=== PATIENT | female | born 1950 | race Caucasian/White ===

== ENCOUNTER → 2020-07-28 | Outpatient (CLI) | payer MEDICARE, OTHER ==
--- NOTE | 2020-07-28 11:06 | MR ---
EXAMINATION TYPE: MR brain wo/w con DATE OF EXAM: 07/28/2020 COMPARISON: None HISTORY: Dizziness and headaches. Hx of Breast CA TECHNIQUE: Multiplanar, multisequence images of the brain and brainstem is performed without and with IV contras t, utilizing 7.5 mL intravenous Gadavist . FINDINGS: Diffusion weighted images demonstrate no evidence of a recent infarct or other diffusion ab normality. There is no extra-axial fluid collection. Scattered periventricular hyperintensities are present on inversion recovery T2-weighted sequences, approximately 5 lesions. The ventricular system and cisternal spaces are normal in size and appearance. The brain volume is age appropriate. Midline structures demonstrate normal morphology. The craniocervical junction appears within normal limits. Post contrast images demonstrate no abnormal enhancement. The dural venous sinuses appear pa tent. The visualized sinuses are showing some mucoperiosteal thickening in ethmoid air cells and maxi llary sinus and the globes are intact. IMPRESSION: Nonspecific white matter demyelination could be related to chronic small vessel ischemia
== END | disposition home or self-care (01) ==
LOC: RADMRIMAIN 09:07
PROVIDERS: ATTEND Internal Medicine Hematology & Oncology
DX: G37.8 Other specified demyelinating diseases of central nervous system (principal); R51.9 Headache, unspecified; C50.511 Malignant neoplasm of lower-outer quadrant of right female breast
CPT/HCPCS: 70553; A9585

== ENCOUNTER → 2020-11-01 | Outpatient (CLI) | payer MEDICARE, OTHER ==
--- NOTE | 2020-11-01 14:43 | NM ---
EXAMINATION TYPE: NM bone scan whole body DATE OF EXAM: 11/01/2020 COMPARISON: NONE HISTORY: Breast cancer Delayed whole-body scanning was performed following the injection of 24.8 mCi Tc 99m MDP. Images wer e acquired 3 hours post injection. FINDINGS: Mild uptake is along the posterior left upper cervical spine may be degenerative in nature. Mild upta ke is present along the costovertebral junction T5 on the right, T7 on the left possibly T11 on the r ight. There is a focus of radiotracer accumulation near the anterior sternal clavicular junction on the rig ht, likely degenerative in nature. Focal radiotracer accumulation is within the left midfoot more likely is posttraumatic or degenerativ e. Plain film correlation however is recommended. Degenerative changes and the prostheses appear to be present bilaterally. IMPRESSION: 1. Intense focal radiotracer on the mid left foot most likely is posttraumatic or possibly degenerati ve in nature. Plain film correlation is recommended to evaluate for possible metastasis. 2. Additional foci of radiotracer more likely related to degenerative changes
--- NOTE | 2020-11-01 14:52 | CT ---
EXAMINATION TYPE: CT ChestAbdPelvis w con DATE OF EXAM: 11/01/2020 INDICATION: breast CA COMPARISON: None CT DLP: 2008 mGycm CONTRAST: Performed with Oral Contrast and with IV Contrast, patient injected with 100 mL of Isovue 300. TECHNIQUE: Axial images at 5 mm thick sections. Reconstructed images in the coronal plane. Delayed images through the kidneys. FINDINGS: CT CHEST: Portion of the thyroid visualized appears heterogenous. No suspicious lung nodules or focal infiltrates are present. No enlarged mediastinal or hilar adenopathy is evident. The ascending aorta diameter at the level of the main pulmonary artery is 3.0 cm. The main pulmonary artery diameter at the bifurcation is 2.8 cm. Right mastectomy is evident. CT ABDOMEN: Liver: Mild fatty infiltration. No discrete masses or cysts Spleen: Normal Pancreas: Normal Adrenal glands: The adrenal glands are normal. Gallbladder: Gallstone at the neck of the bladder is not excluded. Kidneys: No masses are evident. No hydronephrosis is present. No cysts are present. Delayed images were obtained through the kidneys, which remain unremarkable. Aorta: Vascular calcification is within the aorta. Inferior vena cava: Normal. CT PELVIS: Loops of bowel within the abdomen and pelvis are normal. There are loops of bowel which are incom pletely distended or lack oral contrast limiting their evaluation. Appendix: Not identified. No dilated tubular structure inflammatory changes evident. Urinary bladder: Normal. Genitourinary structures: Uterus and ovaries are not identified. Osseous structures: No suspicious lytic lesions are evident. There is an area of sclerosis along the medial right iliac wing. Series 3 image 95. This was present previously and appears stable. Facet deg enerative changes are within the lumbar spine small rounded sclerotic areas within the L1 vertebral b elizabeth hemangioma is likely present T11. Suspicious areas to suggest metastatic disease to correspond to the abnormal uptake on bone scan are not evident within the [id number]. IMPRESSIONS: 1. Couple of stable sclerotic areas within the right iliac wing and lower vertebral levels likely of bone islands. 2. Gallstone suspected the gallbladder. 3. Mild fatty alteration liver. 4. Heterogenous thyroid can be further evaluated with ultrasound
== END | disposition home or self-care (01) ==
LOC: RADNMMAIN 10:27
PROVIDERS: ATTEND Internal Medicine Hematology & Oncology
DX: K76.0 Fatty (change of) liver, not elsewhere classified (principal); C50.811 Malignant neoplasm of overlapping sites of right female breast; Z88.8 Allergy status to other drugs, medicaments and biological substances; Z91.018 Allergy to other foods
CPT/HCPCS: 82565; 84520; 71260; 74177; 78306; 36415; A9503; Q9967

== ENCOUNTER → 2021-03-13 | Outpatient (CLI) | payer MEDICARE, OTHER ==
--- NOTE | 2021-03-13 14:03 | CT ---
EXAMINATION TYPE: CT ChestAbdPelvis w con DATE OF EXAM: 03/13/2021 COMPARISON: Prior CT November 01, 2020 HISTORY: follow up breast cancer CT DLP: 938 mGycm. Automated Exposure Control for Dose Reduction was Utilized. CONTRAST: CT scan of the thorax, abdomen and pelvis is performed with oral and with IV Contrast, patient inject ed with 100 mL of Isovue 300. FINDINGS: LUNGS: The lungs are grossly clear, there is no concerning parenchymal mass or nodule identified. T here is no pleural effusion or pneumothorax seen. The tracheobronchial tree is patent. MEDIASTINUM: There are no greater than 1 cm hilar or mediastinal lymph nodes. No cardiomegaly or pe ricardial effusion is seen. OTHER: Right breast surgically absent. Surgical clips right axilla redemonstrated. LIVER/GB: Liver remains diffusely low dense consistent with mild diffuse fatty infiltration. PANCREAS: No significant abnormality is seen. SPLEEN: Stable small eccentric 8 mm rim calcified splenic artery aneurysm axial image 59. ADRENALS: Stable thickening to both adrenal glands consistent with benign lipid rich hyperplasia. KIDNEYS: No significant abnormality is seen. BOWEL: A few distal colonic diverticula. GENITAL ORGANS: Uterus is surgically absent. LYMPH NODES: No greater than 1cm abdominal or pelvic lymph nodes are appreciated. OSSEOUS STRUCTURES: There is large hemangioma involving the T11 vertebra. Nonspecific roughly 1.0 cm sclerotic lesion right iliac bone near sacroiliac joint on coronal image 71 is stable. Significant sc lerosis right clavicle redemonstrated. Stable subcentimeter sclerotic lesion superior L1 level bolanos l image 65. Multilevel spurring in the spine. Sclerotic subcentimeter focus right superior acetabulum coronal image 56 stable. OTHER: No significant additional abnormality is seen. IMPRESSION: Stable osseous sclerotic metastatic disease most suspicious at level of right clavicle. No new suspicious mass or adenopathy noted.
== END | disposition home or self-care (01) ==
LOC: RADCTMAIN 10:55
PROVIDERS: ATTEND Internal Medicine Hematology & Oncology
DX: Z03.89 Encounter for observation for other suspected diseases and conditions ruled out (principal); C50.811 Malignant neoplasm of overlapping sites of right female breast; Z88.8 Allergy status to other drugs, medicaments and biological substances; Z91.018 Allergy to other foods
CPT/HCPCS: 82565; 84520; 71260; 74177; 36415; Q9967

== ENCOUNTER → 2021-09-06 | Outpatient (CLI) | payer MEDICARE, OTHER ==
--- NOTE | 2021-09-06 17:05 | CT ---
EXAMINATION TYPE: CT ChestAbdPelvis w con DATE OF EXAM: 09/06/2021 COMPARISON: CT 03/13/2021 HISTORY: Breast Cancer CT DLP: 1691 mGycm Automated exposure control for dose reduction was used. CONTRAST: CT scan of the chest, abdomen and pelvis is performed with Oral Contrast and with IV Contrast, patien t injected with 100 ml mL of Isovue 300. FINDINGS: Patient is post right mastectomy. Right axillary dissection changes are present with surgic al clips noted LUNGS: The lungs are grossly clear, there is no concerning parenchymal mass or nodule identified. T here is no pleural effusion or pneumothorax seen. The tracheobronchial tree is patent. MEDIASTINUM: There are no greater than 1 cm hilar or mediastinal lymph nodes. No pericardial effusi on is seen. There is a small hiatal hernia. AORTA: No significant abnormality is seen. OTHER: No additional significant abnormality is seen. LIVER/GB: No significant abnormality is appreciated. PANCREAS: No significant abnormality is seen. SPLEEN: Calcified left splenic artery aneurysm is again seen measuring 8 to 9 mm.. ADRENALS: No significant abnormality is seen. KIDNEYS: No significant abnormality is seen. REPRODUCTIVE ORGANS: Uterus and adnexal structures are not seen. BOWEL: There is a duodenal diverticulum present at the level of the head of the pancreas.. FREE AIR: No Free Air visible. ASCITES: None seen. RETROPERITONEAL ADENOPATHY: No retroperitoneal adenopathy is seen. LYMPH NODES: No greater than 1 cm abdominal or pelvic lymph nodes are appreciated. URINARY BLADDER: No significant abnormality is seen. PELVIC ADENOPATHY: None visualized. OSSEOUS STRUCTURES: There are sclerotic foci present consistent with possible metastatic disease inv olving the right ilium, left ilium, right clavicle, left femur, L1 vertebral body, right acetabulum a lso stable. Hemangioma within the T10-11 vertebral body again seen, there is a scoliotic curvature, m ultilevel spondylosis IMPRESSION: Stable sclerotic foci within the skeleton are indeterminate, no additional new abnormalit y
== END | disposition home or self-care (01) ==
LOC: RADCTMAIN 12:03
PROVIDERS: ATTEND Internal Medicine Hematology & Oncology
DX: C50.811 Malignant neoplasm of overlapping sites of right female breast (principal)
CPT/HCPCS: 82565; 84520; 71260; 74177; 36415; Q9967

== ENCOUNTER → 2022-05-29 | Outpatient (CLI) | payer MEDICARE, OTHER ==
--- NOTE | 2022-05-29 12:50 | CT ---
EXAMINATION TYPE: CT ChestAbdPelvis w con CT DLP: 999.80 mGycm, Automated exposure control for dose reduction was used. DATE OF EXAM: 05/29/2022 12:16 PM COMPARISON: Most recent CT 09/06/2021. CLINICAL INDICATION:Female, 71 years old with history of C50.811; PHH, Malignant neoplasm of overlapp ing sites of right female breast Technique: Multiple axial images of the chest, abdomen, and pelvis were obtained. Two-dimensional cor onal and sagittal reconstructions were obtained. Contrast used:100 ml mL of Isovue 300 with IV Contrast, Oral contrast used: with Oral Contrast Findings: CHEST: LUNGS/ PLEURA: No new or enlarging pulmonary nodules. No focal consolidation, pneumothorax or pleural effusion. AIRWAY: Patent and unremarkable. HEART: Size within normal limits. MEDIASTINUM: No gross evidence of adenopathy. VASCULATURE: No aortic aneurysm. No evidence for pulmonary embolism. MUSCULOSKELETAL: No acute osseous abnormalities. SOFT TISSUES/LYMPH NODES: Right breast is surgically absent. Scattered surgical changes noted along t he right chest wall with surgical clips. LOWER NECK: No significant findings. ABDOMEN: ABDOMEN LIVER: Diffusely hypoattenuating parenchyma. GALLBLADDER AND BILE DUCTS: Unremarkable. PANCREAS: Unremarkable. SPLEEN: Unremarkable. ADRENAL GLANDS: Unremarkable. KIDNEYS AND URETERS: No evidence of hydronephrosis or renal calculus. The ureters are unremarkable. PELVIS BLADDER: Unremarkable REPRODUCTIVE: Unremarkable. ABDOMEN & PELVIS STOMACH AND BOWEL: No evidence of bowel obstruction. Small hiatal hernia. PERITONEUM: No evidence of pneumoperitoneum or free fluid. VASCULATURE: No evidence of aortic aneurysm. MUSCULOSKELETAL: No acute osseous abnormalities, stable probable right iliac crest bone island dating back to 11/01/2020. Additional sclerosis of the right clavicle in the midportion is unchanged from 11/01 as well as right rib 2 anteriorly 3 anteriorly as well as L1 vertebral body. Subcentimeter foc us in the right scapula and T9 vertebral body as well. LYMPH NODES: No gross evidence for lymphadenopathy. SOFT TISSUE/ABDOMINAL WALL: Unremarkable IMPRESSION: 1. No evidence for recurrence. 2. Similar sclerotic areas throughout the osseous structures including the right clavicle, right sec ond and third ribs, L1 vertebral body superior endplate right iliac bone. 3. Hepatic steatosis.
--- NOTE | 2022-05-29 15:01 | NM ---
EXAMINATION TYPE: NM bone scan whole body DATE OF EXAM: 05/29/2022 COMPARISON: Nuclear medicine bone scan 10/16/[address] chest abdomen pelvis 05/29/2022. HISTORY: History of breast cancer. Delayed whole-body scanning was performed following the injection of 22.7 mCi Tc 99m MDP. Images acq uired 3 hours post injection. FINDINGS: Unchanged mild multifocal areas of increased uptake within the thoracolumbar spine. No CT correlate f or lytic or cirrhotic lesions favoring degenerative changes. Similar focus of radiotracer uptake with in the right clavicle near the sternum corresponding to chronic lesion on CT. Mild uptake within the bilateral shoulder joints and knee joints is most consistent with degenerative changes with right kne e prosthesis redemonstrated. Stable increased uptake within the left hindfoot favoring degenerative c hange. No new focal areas of uptake identified. IMPRESSION: Overall stable examination with right clavicular osseous metastatic lesion. No new defini tive osseous metastatic lesions.
== END | disposition home or self-care (01) ==
LOC: RADNMMAIN 09:33
PROVIDERS: ATTEND Internal Medicine Hematology & Oncology
DX: Z03.89 Encounter for observation for other suspected diseases and conditions ruled out (principal); C50.811 Malignant neoplasm of overlapping sites of right female breast
CPT/HCPCS: 82565; 84520; 71260; 74177; 36415; 78306; A9503; Q9967

== ENCOUNTER → 2022-10-19 | Outpatient (CLI) | payer MEDICARE, OTHER ==
--- NOTE | 2022-10-19 13:56 | CT ---
EXAMINATION: CT CHEST, ABDOMEN AND PELVIS WITH IV CONTRAST DATE OF EXAMINATION: 10/19/2022. COMPARISON: 05/29/2022.. INDICATION: Breast cancer. PROCEDURE: Axial CT of the chest, abdomen and pelvis was performed following the intravenous adminis tration of 100 ml Isovue 300. Coronal and sagittal reformats were performed. CT dose lowering techni ques were used, to include: automated exposure control, adjustment for patient size, and/or use of it erative reconstruction. FINDINGS: CHEST: CHEST WALL: There is a prior right mastectomy. Mediastinum and [place]: There is no axillary, mediastinal or hilar lymphadenopathy. Pleural and Pericardial spaces: There are no pleural or pericardial effusions. Cardiovascular: The thoracic aorta is normal in size without evidence of aneurysm or dissection. Pulmonary Artery: There are no central pulmonary arterial filling defects. Lung Parenchyma and Airways: The lungs are clear. ABDOMEN: Liver and Biliary system: There is mild diffuse decreased attenuation of the liver which is compatib le fatty liver infiltration. No suspicious liver lesions are otherwise seen.. Adrenal glands: Normal. Kidneys and ureters: Normal. Spleen: Normal. Pancreas: Normal. Gallbladder: Normal. Lymph nodes, Peritoneum and mesentery: There is no mesenteric or retroperitoneal lymphadenopathy. Gastrointestinal tract: There are no dilated loops of bowel or free intraperitoneal air. . The appe ndix is normal. Aorta/IVC: There is mild vascular calcification throughout the abdominal aorta without evidence of aneurysmal dilation or dissection.. IVC normal. Abdominal wall: Normal. PELVIS: Fluid: There is no free fluid in the pelvis. Lymph Nodes: There is no pelvic or inguinal lymphadenopathy.. Urinary bladder: Normal. BONES: There is sclerosis involving the right clavicle anterior right second rib and third rib as we ll as the right iliac bone and superior endplate at L1 that are unchanged. Bones otherwise remain unc hanged. ADDITIONAL SIGNIFICANT FINDINGS: None. IMPRESSION: 1. Unchanged examination with no evidence of new or recurrent metastatic disease. 2. Prior right mastectomy.
--- NOTE | 2022-10-19 15:26 | NM ---
EXAMINATION TYPE: NM bone scan whole body DATE OF EXAM: 10/19/2022 COMPARISON: Multiple nuclear medicine bone scan with most recent 05/29/2022 HISTORY: History of breast cancer. Delayed whole-body scanning was performed following the injection of 21.4 mCi Tc 99m MDP. Images acq uired 3 hours post injection. FINDINGS: Unchanged mild multifocal areas of increased uptake within the thoracolumbar spine without CT correla te. This most consistent with degenerative changes. Similar focus of radiotracer uptake within the right clavicle near the sternum corresponding to chron ic lesion on CT. Mild uptake within the bilateral shoulder joints and knee joints is most consistent with degenerative changes with right knee prosthesis redemonstrated. Stable increased uptake within the left hindfoot favoring degenerative change. No new focal areas of uptake identified. IMPRESSION: Overall stable examination with right clavicular osseous metastatic lesion. No new definitive osseous metastatic lesions.
== END | disposition home or self-care (01) ==
LOC: RADNMMAIN 10:21
PROVIDERS: ATTEND Internal Medicine Hematology & Oncology
DX: C79.51 Secondary malignant neoplasm of bone (principal); C50.811 Malignant neoplasm of overlapping sites of right female breast; D70.2 Other drug-induced agranulocytosis; E11.9 Type 2 diabetes mellitus without complications; Z90.11 Acquired absence of right breast and nipple
CPT/HCPCS: 82565; 84520; 71260; 74177; 36415; 78306; A9503; Q9967

== ENCOUNTER → 2023-03-06 | Outpatient (CLI) | payer MEDICARE, OTHER ==
[2023-03-06 10:36] LABS: African American GFR (CKD) 82 (>60 ml/min/1.73 sqM); Blood Urea Nitrogen 18 mg/dL (7-17); Non-African American GFR(CKD) 71 (>60 ml/min/1.73 sqM)
--- NOTE | 2023-03-06 12:57 | CT ---
EXAMINATION TYPE: CT ChestAbdPelvis w con DATE OF EXAM: 03/06/2023 COMPARISON: Prior CT October 19, 2022 and older studies. HISTORY: Hx breast ca, observe for mets CT DLP: 1180.90 mGycm. Automated Exposure Control for Dose Reduction was Utilized. CONTRAST: CT scan of the thorax, abdomen and pelvis is performed with oral and with IV Contrast, patient inject ed with 100 mL of Isovue 300. FINDINGS: LUNGS: The lungs remain grossly clear, there is no concerning new greater than 5 mm parenchymal mass or nodule identified. There is no pleural effusion or pneumothorax seen. The tracheobronchial tree is patent. MEDIASTINUM: There are no new greater than 1 cm hilar or mediastinal lymph nodes. No cardiomegaly o r pericardial effusion is seen. OTHER: Right breast surgically absent. Surgical clips deep right axilla redemonstrated. LIVER/GB: Liver remains diffusely low dense consistent with diffuse fatty infiltration. PANCREAS: No significant abnormality is seen. SPLEEN: Stable small eccentric 8 mm rim calcified splenic artery aneurysm axial image 59 is redemonst rated. ADRENALS: Stable thickening to both adrenal glands consistent with benign lipid rich hyperplasia. KIDNEYS: No significant abnormality is seen. BOWEL: Small sized hiatal hernia redemonstrated axial image 47 A few distal colonic diverticula. GENITAL ORGANS: Uterus is surgically absent. Likely remnant normal size left ovary axial image 106 is redemonstrated. LYMPH NODES: No new greater than 1cm abdominal or pelvic lymph nodes are appreciated. OSSEOUS STRUCTURES: There is large hemangioma involving the T11 vertebra redemonstrated. Nonspecific roughly 1.0 cm sclerotic lesion right iliac bone near sacroiliac joint on coronal image 7 1 is stable. Significant sclerosis right mid clavicle redemonstrated. Stable subcentimeter sclerotic lesion superior L1 level coronal image 66. Multilevel spurring in the spine is redemonstrated. Sclero tic subcentimeter focus right superior acetabulum coronal image 56 stable. No new sclerotic osseous l esions. OTHER: No significant additional abnormality is seen. IMPRESSION: Stable osseous sclerotic lesions possible metastatic disease most suspicious at level of mid right clavicle. No new suspicious mass or adenopathy noted.
--- NOTE | 2023-03-06 14:50 | NM ---
EXAMINATION TYPE: NM bone scan whole body DATE OF EXAM: 03/06/2023 COMPARISON: Same day CT. Most recent bone scan October 19, 2022. CLINICAL INDICATION: Female, 72 years old with history of C50.111; Delayed whole-body scanning was performed following the injection of 21.5 mCi Tc 99m MDP. Images acq uired 4 hours post injection. FINDINGS: No increased radiotracer uptake to suggest metastatic disease to the bone or other suspicious abnorma lity. Sclerotic lesion right mid clavicle is less well seen on bone scan. Lucency from prosthesis rig ht knee level is redemonstrated. Mild uptake at level of left knee joint is felt to reflect product o f degenerative change. IMPRESSION: No convincing suspicious radiotracer uptake to suggest metastatic disease to the bone. No nspecific sclerotic lesions on CT. No significant change from most recent prior study.
== END | disposition home or self-care (01) ==
LOC: RADNMMAIN 09:38
PROVIDERS: ATTEND Internal Medicine Hematology & Oncology
DX: C50.811 Malignant neoplasm of overlapping sites of right female breast (principal); M89.9 Disorder of bone, unspecified
CPT/HCPCS: 82565; 84520; 71260; 74177; 36415; 78306; A9503; Q9967

== ENCOUNTER → 2023-09-04 | Outpatient (CLI) | payer MEDICARE, OTHER ==
[2023-09-04 10:34] LABS: African American GFR (CKD) 77 (>60 ml/min/1.73 sqM); Blood Urea Nitrogen 15 mg/dL (7-17); Non-African American GFR(CKD) 67 (>60 ml/min/1.73 sqM)
--- NOTE | 2023-09-04 12:25 | CT ---
EXAMINATION TYPE: CT ChestAbdPelvis w con DATE OF EXAM: 09/04/2023 COMPARISON: Prior CT March 06, 2023 and older studies. HISTORY: Breast cancer. CT DLP: 1700 mGycm. Automated Exposure Control for Dose Reduction was Utilized. CONTRAST: CT scan of the thorax, abdomen and pelvis is performed with IV Contrast, patient injected with 100 mL of Isovue 300. FINDINGS: LUNGS: The lungs remain grossly clear, there is no concerning new greater than 5 mm parenchymal mass or nodule identified. There is no pleural effusion or pneumothorax seen. The tracheobronchial tree is patent. MEDIASTINUM: There are no new greater than 1 cm hilar or mediastinal lymph nodes. No cardiomegaly o r pericardial effusion is seen. OTHER: Right breast surgically absent. Surgical clips deep right axilla redemonstrated. LIVER/GB: Liver remains diffusely low dense consistent with diffuse fatty infiltration. PANCREAS: No significant abnormality is seen. SPLEEN: Stable small eccentric 8 mm rim calcified splenic artery aneurysm axial image 59 is redemonst rated. ADRENALS: Stable thickening to both adrenal glands consistent with benign lipid rich hyperplasia. KIDNEYS: No significant abnormality is seen. BOWEL: Oral contrast reaches the level of the proximal left colon. No abnormal small or large bowel d ilatation. Slightly redundant sigmoid colon is noted. GENITAL ORGANS: Uterus is surgically absent. Likely remnant normal size left ovary axial image 106 is redemonstrated. LYMPH NODES: No new greater than 1cm abdominal or pelvic lymph nodes are appreciated. OSSEOUS STRUCTURES: There is large hemangioma involving the T11 vertebra redemonstrated. Nonspecific roughly 1.0 cm sclerotic lesion right iliac bone near sacroiliac joint on coronal image 7 6 is stable. Significant sclerosis right mid clavicle redemonstrated. Stable subcentimeter sclerotic lesion superior L1 level coronal image 68. Multilevel spurring in the spine is redemonstrated. Sclero tic subcentimeter focus right superior acetabulum coronal image 62 stable. No new sclerotic osseous l esions. OTHER: No significant additional abnormality is seen. IMPRESSION: Stable osseous sclerotic lesions possible metastatic disease most suspicious at level of mid right clavicle. No new suspicious mass or adenopathy noted. No significant change from most rece nt prior.
--- NOTE | 2023-09-05 09:45 | NM ---
EXAMINATION TYPE: NM bone scan whole body DATE OF EXAM: 09/04/2023 COMPARISON: Prior whole body bone scan March 06, 2023 CLINICAL INDICATION: Female, 72 years old with history of C50.811 BREAST CANCER; Delayed whole-body scanning was performed following the injection of 22.9 mCi Tc 99m MDP. Images acq uired 4 hours post injection. FINDINGS: No suspicious increased radiotracer uptake to suggest metastatic disease to the bone or other suspici ous abnormality. New increased focal uptake right lateral mandible, correlate for possible dental inf ection or cavity at this level. Sclerotic lesion right mid clavicle is less well seen on bone scan. L ucency from prosthesis right knee level is redemonstrated. Increased uptake at level of left knee ramón nt and the right shoulder joint redemonstrated felt to reflect product of degenerative change. IMPRESSION: No convincing suspicious radiotracer uptake to suggest metastatic disease to the bone. No nspecific sclerotic lesions on CT.
== END | disposition home or self-care (01) ==
LOC: RADNMMAIN 09:27
PROVIDERS: ATTEND Internal Medicine Hematology & Oncology
DX: C50.811 Malignant neoplasm of overlapping sites of right female breast (principal); D70.2 Other drug-induced agranulocytosis; M25.512 Pain in left shoulder; E11.9 Type 2 diabetes mellitus without complications
CPT/HCPCS: 82565; 84520; 71260; 74177; 36415; 78306; A9503; Q9967

== ENCOUNTER → 2023-11-12 | Outpatient (CLI) | payer MEDICARE, OTHER ==
[~2023-11-12] MED LIST: REGADENOSON 0.4 MG/5 ML SYRINGE IV PRN
--- NOTE | 2023-11-12 15:38 | CA ---
Lexiscan Nuclear Stress Test Report Name: Joseph Kyle Exam Date: 11/12/2023 09:50 Exam Location: [facility] Stress Ht (in): 63 Wt (lb): 165 BSA: 1.78 Ordering Phys: Raymundo Chavarria MD Referring Phys: Radha Sarmiento MD Technologist: HANNAH Age: 73 Gender: F : 1950 Procedure CPT: Indications: I20.9 Angina ICD-10 Codes: Patient History: Chest pain and shortness of breath Medications: Meds past 24 hrs: Pretest Chest Pain: STRESS TEST Lexiscan Protocol Exercise Duration (min:sec): 01:[address] Depressions (mm): Angina Score: Mcdermott Score: Resting HR (bpm): 78 Peak HR (bpm): 107 Resting BP (mmHg): 131 / 77 Peak BP (mmHg): 152 / 72 MPHR: 147 Target HR: 125 % MPHR: 73 METS: 1.0 Total Dose: Peak Dose: Atropine: Double Product: 68135 BP Response: Stress Termination: INFUSION COMPLETE Stress Symptoms: CHEST HEAVINESS,DIFFICULTY IN BREATHING Stress Summary: ECG ANALYSIS Resting ECG: Stress ECG: CONCLUSIONS At baseline EKG showed normal sinus rhythm, normal axis, no significant ST or T wave abnormalities. Patient recieved IV infusion of Lexiscan 0.4mg and at peak infusion EKG showed no significant change from baseline. Conclusions: 1. Normal EKG response to Lexiscan infusion 2. Nuclear imaging to be reported separately. Dr. Amaury Taylor DO (Electronically Signed) Final Date: 12 November 2023 15:37
== END | disposition home or self-care (01) ==
LOC: RADNMMAIN 08:10
PROVIDERS: ATTEND Internal Medicine Geriatric Medicine
DX: I20.9 Angina pectoris, unspecified (principal)
CPT/HCPCS: 93017; 78452; A9500; J2785

== ENCOUNTER → 2024-03-13 | Outpatient (CLI) | payer MEDICARE, OTHER ==
[2024-03-13 10:01] LABS: African American GFR (CKD) 84 (>60 ml/min/1.73 sqM); Blood Urea Nitrogen 15 mg/dL (7-17); Non-African American GFR(CKD) 73 (>60 ml/min/1.73 sqM)
--- NOTE | 2024-03-14 19:43 | NM ---
EXAMINATION TYPE: NM bone scan whole body DATE OF EXAM: 03/13/2024 1:16 PM CLINICAL INDICATION:Female, 73 years old with history of C50.811 BREAST CANCER; COMPARISON: 09/04/2023 TECHNIQUE: Intravenous administration 22.9 mCi Tc 99m MDP followed by multiple scintigraphic images o f the appendicular and axial skeleton. Images acquired 3 hours post injection. FINDINGS: No abnormal uptake is identified within the appendicular or axial skeleton to suggest metastatic dise ase. There is increased uptake within the bilateral shoulder (right greater than left), sternoclavicular, and sacroiliac joints, left ankle, bilateral knees consistent with degenerative changes. No other ph otopenic areas or areas of increased activity are identified. Physiologic radiotracer activity is demonstrated in the kidneys and bladder. IMPRESSION: Nothing to suggest metastatic disease.
--- NOTE | 2024-03-16 18:53 | CT ---
EXAMINATION TYPE: CT ChestAbdPelvis w con CT DLP: 1101.1 mGycm, Automated exposure control for dose reduction was used. DATE OF EXAM: 03/13/2024 11:06 AM COMPARISON: CT chest abdomen and pelvis 09/04/2023, 03/06/2023 CLINICAL INDICATION:Female, 73 years old with history of C50.811 BREAST CANCER; [facility], follow up breast ca Technique: Multiple axial images of the chest, abdomen, and pelvis were obtained following the intrav enous administration of 100 mL Isovue-300. Oral contrast was administered. Two-dimensional coronal an d sagittal reconstructions were obtained. Findings: CHEST: LUNGS/ PLEURA: No pleural effusion, pneumothorax, focal consolidation. No suspicious pulmonary nodule or mass. AIRWAY: Patent and unremarkable.. HEART: Size within normal limits. No pleural effusion. Mitral annulus and aortic valvular calcificati ons noted. MEDIASTINUM: No evidence of adenopathy. VASCULATURE: No aortic aneurysm. MUSCULOSKELETAL: No acute osseous abnormalities. Benign vertebral hemangioma involving the T12 verteb ral body. Similar severe sclerosis of the right mid clavicle redemonstrated. Multilevel degenerative disc disease. SOFT TISSUES/LYMPH NODES: Postsurgical changes of the right breast mastectomy and axilla. No axillary lymph nodes identified. No CT evidence for local recurrence. LOWER NECK: Few subcentimeter left thyroid gland hypodense nodules.. ABDOMEN: ABDOMEN LIVER: Diffusely hypoattenuating parenchyma. No focal hepatic lesion identified. GALLBLADDER AND BILE DUCTS: Contracted gallbladder. No ductal dilatation. PANCREAS: Unremarkable. SPLEEN: Normal size. Stable calcified 8 mm splenic artery aneurysm. ADRENAL GLANDS: Stable thickening of both adrenal glands consistent with benign lipid rich hyperplasi a. KIDNEYS AND URETERS: No evidence of hydronephrosis or renal calculus. The kidneys enhance symmetrical ly without focal lesion. Contrast is demonstrated within both collecting systems on the delayed phase . PELVIS BLADDER: Incompletely distended but grossly unremarkable. REPRODUCTIVE: The uterus is surgically absent. ABDOMEN & PELVIS STOMACH AND BOWEL: Small hiatal hernia, duodenum is unremarkable. Enteric contrast reaches the spleni c flexure. No focal bowel wall thickening or surrounding inflammatory changes. Redundant sigmoid colo n. The appendix is not identified and may be surgically absent. No evidence of bowel obstruction. PERITONEUM: No evidence of pneumoperitoneum or free fluid. VASCULATURE: Moderate atherosclerotic calcifications are present throughout the abdominal aorta and i ts branches. No abdominal aortic aneurysm. MUSCULOSKELETAL: No acute osseous abnormalities. Multilevel degenerative disc disease. Stable sclerot ic and the right iliac bone measuring up to 9 mm. Stable sclerotic focus within the L1. LYMPH NODES: No gross evidence for lymphadenopathy. SOFT TISSUE/ABDOMINAL WALL: Unremarkable IMPRESSION: Overall no significant change from most recent prior examination. No new suspicious mass or adenopath y noted. Stable sclerotic osseous lesions from prior exams with most suspicious again at the right mi d clavicle. No new suspicious osseous lesions. These do not demonstrate uptake on prior bone scans an d are nonspecific.
== END | disposition home or self-care (01) ==
LOC: RADNMMAIN 09:07
PROVIDERS: ATTEND Internal Medicine Hematology & Oncology
DX: C50.811 Malignant neoplasm of overlapping sites of right female breast (principal); M25.512 Pain in left shoulder; D70.2 Other drug-induced agranulocytosis; E11.9 Type 2 diabetes mellitus without complications
CPT/HCPCS: 82565; 84520; 71260; 74177; 36415; 78306; A9503; Q9967

== ENCOUNTER → 2024-06-29 | Outpatient (CLI) | payer MEDICARE, OTHER ==
--- NOTE | 2024-06-29 12:02 | BD ---
EXAMINATION TYPE: Axial Bone Density DATE OF EXAM: 06/29/2024 CLINICAL HISTORY: 73 years old Female. ICD-10 CODE: C50.811 BREAST CANCER Height: 61.8in Weight: 169lb FRAX RISK QUESTIONS: Secondary Osteoporosis: RISK FACTORS HISTORY OF: MEDICATIONS: Thyroid Medications: Which medication: Levothyroxine How Long: about 50 years Osteoporosis Medications: Which medication: Zometa not currently using How Long: about 2.5 years EXAM MEASUREMENTS: Bone mineral densitometry was performed using the [employer] System. Bone mineral density as measured about the Lumbar spine is: ----- L1-L4(G/cm2): 1.379 T Score Values are as follows: ----- L1: 1.1 ----- L2: 1.2 ----- L3: 1.8 ----- L4: 2.5 ----- L1-L4: 1.7 Z Score Values are as follows: ----- L1: 2.5 ----- L2: 2.6 ----- L3: 3.1 ----- L4: 3.8 ----- L1-L4: 3.0 First dexa at [facility] Bone mineral density about the R hip (g/cm2): 1.096 Bone mineral density about the L hip (g/cm2): 1.067 T Score values are as follows: -----R Neck: 0.1 -----L Neck: 0.2 -----R Total: 0.7 -----L Total: 0.5 Z Score values are as follows: -----R Neck: 1.7 -----L Neck: 1.8 -----R Total: 2.1 -----L Total: 1.9 First dexa at [facility] FRAX%s: The graph provided illustrates a 7% chance for a major osteoporotic fx and a 0.5% chance for the hips probability for fx in 10 years time. IMPRESSION: Normal (Values between +1 and -1 indicate normal bone mass). Consider repeating this study in 5 year s or sooner if there is some new clinical indication. NOTE: T-SCORE=SD OF THE YOUNG ADULT MEAN. [facility], , 06/29/2024 12:00 PM
== END | disposition home or self-care (01) ==
LOC: RADBDWWP 10:56
PROVIDERS: ATTEND Internal Medicine Hematology & Oncology
CPT/HCPCS: 77080

== ENCOUNTER → 2024-08-04 | Outpatient (CLI) | payer MEDICARE, OTHER ==
--- NOTE | 2024-08-09 18:44 | MM ---
Reason for Exam: Screening (asymptomatic). Last mammogram was performed 1 year(s) and 1 month(s) ago. Patient History: Menarche at age 12. First Full-Term at age 24. Left ovary removed at age 48. Hysterectomy at age 48. Postmenopausal. Breast cancer, right, age 54. Previous chemotherapy at age 54. Patient used Hormonal Contraceptives for 7 years. 2004, Mastectomy on the Right side. Paternal grandmother had breast cancer, age 35. Prior Study Comparison: 06/25/2022 Left MG 3D diag mammo w/cad LT, Unknown. 07/30/2023 Left MG 3D diag mammo w/cad LT, Unknown. Tissue Density: Left: The breasts are almost entirely fatty. Findings: The pattern is stable. Chronic nodularities within the left breast. Benign punctate calcifications are present No suspicious groups of microcalcifications, spiculated or lobular masses, architectural distortion or other secondary signs of malignancy are mammographically apparent. Overall Assessment: Benign, BI-RAD 2 Management: Screening Mammogram of the left breast in 1 year. A negative mammogram report should not preclude additional follow up of suspicious palpable abnormalities. Patient should continue monthly self breast exam. A clinical breast exam by your physician is recommended on an annual basis and results should be correlated with mammographic findings. Note on Nafisa scores and lifetime risk: 1. A Nafisa score greater than 3% is considered moderate risk. If this is the case, consider specialist referral to assess eligibility for a risk reducing agent. 2. If overall lifetime risk for the development of breast cancer is 20% or higher, the patient may qualify for future screening with alternating mammogram and breast MRI. [facility], , 08/09/2024 6:41 PM. Electronically signed and approved by: Justin Sanches D.O. Radiologis
== END | disposition home or self-care (01) ==
LOC: RADMAMWWP 13:35
PROVIDERS: ATTEND Internal Medicine Geriatric Medicine
DX: Z12.31 Encounter for screening mammogram for malignant neoplasm of breast (principal); Z78.0 Asymptomatic menopausal state; Z80.3 Family history of malignant neoplasm of breast
CPT/HCPCS: 77067

== ENCOUNTER → 2024-09-07 | Outpatient (CLI) | payer MEDICARE, OTHER ==
[2024-09-07 11:27] LABS: African American GFR (CKD) 62 (>60 ml/min/1.73 sqM); Blood Urea Nitrogen 17 mg/dL (7-17); Non-African American GFR(CKD) 54 (>60 ml/min/1.73 sqM)
--- NOTE | 2024-09-07 13:21 | CT ---
EXAMINATION TYPE: CT ChestAbdPelvis w con DATE OF EXAM: 09/07/2024 COMPARISON: 03/13/2024 HISTORY: f/u breast ca CT DLP: 1081 mGycm Automated exposure control for dose reduction was used. CONTRAST: CT scan of the chest, abdomen and pelvis is performed with Oral Contrast and with IV Contrast, patien t injected with 80cc mL of Isovue 370. Findings: CHEST: LUNGS/ PLEURA: No pleural effusion, pneumothorax, focal consolidation. No suspicious pulmonary nodule or mass. AIRWAY: Patent and unremarkable.. HEART: Size within normal limits. No pleural effusion. Mitral annulus and aortic valvular calcificati ons noted. MEDIASTINUM: No evidence of adenopathy. VASCULATURE: No aortic aneurysm. MUSCULOSKELETAL: No acute osseous abnormalities. Benign vertebral hemangioma involving the T12 verteb ral body. Similar severe sclerosis of the right mid clavicle redemonstrated. Multilevel degenerative disc disease. SOFT TISSUES/LYMPH NODES: Postsurgical changes of the right breast mastectomy and axilla. No axillary lymph nodes identified. No CT evidence for local recurrence. LOWER NECK: Few subcentimeter left thyroid gland hypodense nodules. ABDOMEN: ABDOMEN LIVER: Diffusely hypoattenuating parenchyma consistent with hepatic cirrhosis.. No focal hepatic lesi on identified. GALLBLADDER AND BILE DUCTS: Contracted gallbladder. No ductal dilatation. PANCREAS: Unremarkable. SPLEEN: Normal size. Stable calcified 8 mm splenic artery aneurysm. ADRENAL GLANDS: Stable thickening of both adrenal glands consistent with benign lipid rich hyperplasi a. KIDNEYS AND URETERS: No evidence of hydronephrosis or renal calculus. The kidneys enhance symmetrical ly without focal lesion. Contrast is demonstrated within both collecting systems on the delayed phase . PELVIS BLADDER: Incompletely distended but grossly unremarkable. REPRODUCTIVE: The uterus is surgically absent. ABDOMEN PELVIS STOMACH AND BOWEL: Small hiatal hernia, small duodenal diverticulum. No focal bowel wa ll thickening or surrounding inflammatory changes. Redundant sigmoid colon. The appendix is not ident ified and may be surgically absent. No evidence of bowel obstruction. PERITONEUM: No evidence of pneumoperitoneum or free fluid. VASCULATURE: Moderate atherosclerotic calcifications are present throughout the abdominal aorta and i ts branches. No abdominal aortic aneurysm. MUSCULOSKELETAL: No acute osseous abnormalities. Multilevel degenerative disc disease. Stable sclerot ic and the right iliac bone measuring up to 9 mm. Stable sclerotic focus within the L1. Stable verteb ral body hemangioma. Bilateral hip arthropathy. LYMPH NODES: No gross evidence for lymphadenopathy. SOFT TISSUE/ABDOMINAL WALL: Unremarkable IMPRESSION: Overall no significant change from most recent prior examination. No new suspicious mass or adenopathy noted. Stable sclerotic osseous lesions from prior exams with most suspicious again at the right mid clavicle. No new suspicious osseous lesions. These do not demonstrate uptake on prior b one scans and are nonspecific. [facility], , 09/07/2024 1:18 PM
--- NOTE | 2024-09-07 15:34 | NM ---
EXAMINATION TYPE: NM bone scan whole body DATE OF EXAM: 09/07/2024 COMPARISON: 03/13/2024 CLINICAL INDICATION: Female, 73 years old with history of C50.811 BREAST CX; Delayed whole-body scanning was performed following the injection of 25.2 mCi Tc 99m MDP. Images acq uired 3 hours post injection. FINDINGS: As on the prior study, there is increased uptake in the shoulders, sternoclavicular joints, SI joints , left ankle and bilateral knees consistent with osteoarthritis. There are scattered areas of mild up take in the dorsal spine unchanged. Previous and also likely degenerative in nature. There is no new or abnormal uptake to suggest metastatic disease. IMPRESSION: No evidence of bony metastatic disease. No interval change. [facility], Workstation: [id number] 09/07/2024 3:32 PM
== END | disposition home or self-care (01) ==
LOC: RADNMMAIN 10:41
PROVIDERS: ATTEND Internal Medicine Hematology & Oncology
DX: C50.811 Malignant neoplasm of overlapping sites of right female breast (principal); D70.2 Other drug-induced agranulocytosis; M25.512 Pain in left shoulder; E11.9 Type 2 diabetes mellitus without complications
CPT/HCPCS: 82565; 84520; 71260; 74177; 36415; 78306; A9503; Q9967

== ENCOUNTER → 2025-03-08 | Outpatient (CLI) | payer MEDICARE ==
[2025-03-08 12:16] LABS: African American GFR (CKD) 75 (>60 ml/min/1.73 sqM); Blood Urea Nitrogen 11 mg/dL (7-17); Non-African American GFR(CKD) 65 (>60 ml/min/1.73 sqM)
--- NOTE | 2025-03-08 14:00 | CT ---
EXAMINATION TYPE: CT ChestAbdPelvis w con DATE OF EXAM: 03/08/2025 1:33 PM COMPARISON: 09/07/2024. CLINICAL INDICATION: Female, 74 years old with history of C50.811 BREAST CANCER; [facility], Technique: CT ChestAbdPelvis w con; Multiple axial images were obtained. Two-dimensional coronal and sagittal reconstructions were obtained. Contrast used: 100 cc of Isovue 300 Oral contrast used: with Oral Contrast CT DLP: 1146 mGycm, Automated exposure control for dose reduction was used. Findings: LUNGS/ PLEURA: No pleural effusion, pneumothorax, focal consolidation. No suspicious pulmonary nodule or mass. AIRWAY: Patent and unremarkable.. HEART: Size within normal limits. No pleural effusion. Mitral annulus and aortic valvular calcificati ons noted. MEDIASTINUM: No evidence of adenopathy. VASCULATURE: No aortic aneurysm. MUSCULOSKELETAL: * No acute osseous abnormalities. * Benign vertebral hemangioma involving the T12 vertebral body. * Similar sclerosis of the right mid clavicle redemonstrated. * [id number] degenerative disc disease with osteophyte formation disc space narrowing.. SOFT TISSUES/LYMPH NODES: Postsurgical changes of the right breast mastectomy and axilla. No axillary lymph nodes identified. No CT evidence for local recurrence. LOWER NECK: Few subcentimeter left thyroid gland hypodense nodules.. ABDOMEN LIVER: Diffusely hypoattenuating parenchyma. No focal hepatic lesion identified. GALLBLADDER AND BILE DUCTS: Contracted gallbladder. No ductal dilatation. PANCREAS: Unremarkable. SPLEEN: Normal size. Stable 8 mm splenic artery aneurysm which is calcified. ADRENAL GLANDS: Stable thickening of both adrenal glands consistent with benign lipid rich hyperplasi a. KIDNEYS AND URETERS: No evidence of hydronephrosis or renal calculus. The kidneys enhance symmetrical ly without focal lesion. Contrast is demonstrated within both collecting systems on the delayed phase . BLADDER: Grossly unremarkable. REPRODUCTIVE: The uterus is surgically absent. No pelvic lymphadenopathy. STOMACH AND BOWEL: Small hiatal hernia, duodenum is unremarkable. Enteric contrast reaches the spleni c flexure. No focal bowel wall thickening or surrounding inflammatory changes. Redundant sigmoid colo n. The appendix is not identified and may be surgically absent. No evidence of bowel obstruction. PERITONEUM: No evidence of pneumoperitoneum or free fluid. VASCULATURE: Moderate atherosclerotic calcifications are present throughout the abdominal aorta and i ts branches. No abdominal aortic aneurysm. MUSCULOSKELETAL: No acute osseous abnormalities. Multilevel degenerative disc disease. Stable sclerot ic and the right iliac bone measuring up to 9 mm. Stable sclerotic focus within the L1. LYMPH NODES: No gross evidence for lymphadenopathy. SOFT TISSUE/ABDOMINAL WALL: Unremarkable IMPRESSION: 1. Stable exam no evidence for new lymphadenopathy or mass. 2. Stable sclerotic osseous lesions from prior exams with most suspicious again at the right mid cla vicle. No new suspicious osseous lesions. [facility], , 03/08/2025 1:57 PM
== END | disposition home or self-care (01) ==
LOC: RADCTMAIN 11:20
PROVIDERS: ATTEND Internal Medicine Hematology & Oncology
DX: C50.811 Malignant neoplasm of overlapping sites of right female breast (principal); D70.2 Other drug-induced agranulocytosis; M25.512 Pain in left shoulder; E11.9 Type 2 diabetes mellitus without complications; Z85.3 Personal history of malignant neoplasm of breast
CPT/HCPCS: 82565; 84520; 71260; 74177; 36415; Q9967